=== PATIENT | male | born 1995 | race Caucasian/White ===

== ENCOUNTER 2025-03-29 07:25 | Emergency (ER) | payer OTHER ==
[~2025-03-29] VITALS: Ht 177.8 cm; Wt 81.8 kg
[2025-03-29] MEDS: HYDROmorphone HCL 2 MG/ML SYRINGE IVP ONE (08:03)
[2025-03-29] MEDS: ONDANSETRON HCL 4 MG/2 ML VIAL IVP ONE (08:03)
[2025-03-29] MEDS ORDERED: ETOMIDATE 2 MG/ML 10 ML VIAL ONE (08:26)
[2025-03-29 08:28] VITALS: O2SAT 87
[2025-03-29] MEDS: ETOMIDATE 2 MG/ML 10 ML VIAL IVP ONE (08:47)
[2025-03-29 09:32] VITALS: BP 150/105; PULSE 89; RESP 16; O2SAT 98
[2025-03-29] MEDS ORDERED: IBUP-1554 PO (09:36)
[2025-03-29] MEDS ORDERED: ACET-2080 PO (09:36)
[2025-03-29] MEDS: IBUPROFEN 600 MG TABLET PO ONE (10:00)
== END 2025-03-29 10:11 | disposition home or self-care (01) ==
LOC: EMS 07:27
DX: S53.124A Posterior dislocation of right ulnohumeral joint, initial encounter (principal); Z88.0 Allergy status to penicillin; W19.XXXA Unspecified fall, initial encounter; Y93.89 Activity, other specified; Y92.89 Other specified places as the place of occurrence of the external cause; Y99.0 Civilian activity done for income or pay
CPT/HCPCS: 99285; 24600; 96374; 96375; 73070; 73080; J3490; J1171; J2405; 24640; 99152